=== PATIENT | female | born 1960 | race Two or more races ===

== ENCOUNTER 2021-08-05 17:13 | Emergency (ER) | payer MEDICARE, OTHER ==
[~2021-08-05] VITALS: Ht 157.5 cm; Wt 68.0 kg
--- NOTE | 2021-08-05 19:00 | NUR ---
Patient came back from CT scan accompanied by
--- NOTE | 2021-08-05 19:15 | NUR ---
Seen by THIERNO DE SOUZA for MSE.
--- NOTE | 2021-08-05 19:21 | NUR ---
Report given to Monique Mathews
[2021-08-05 19:29] LABS: HEMATOCRIT 26.1 % (31.2-41.9); MEAN CORPUSCULAR HEMOGLOBIN 30.4 uug (24.7-32.8); MEAN CORPUSCULAR VOLUME 90.5 fL (75.5-95.3); PLATELET COUNT (AUTO) 369 K/uL (179-408)
[2021-08-05 19:58] LABS: ALANINE AMINOTRANSFERASE 8 U/L (14-59); ALKALINE PHOSPHATASE 136 U/L (50-136); ASPARTATE AMINOTRANSFERASE 12 U/L (15-37); BILIRUBIN,DIRECT 0.1 mg/dL (0.0-0.2); BILIRUBIN,TOTAL 0.4 mg/dL (0.2-1.0); CARBON DIOXIDE 29 mmol/L (21-32); CHLORIDE 96 mmol/L (98-107); CREATININE 2.5 mg/dL (0.6-1.3); GLUCOSE 161 mg/dL (74-106); POTASSIUM 3.7 mmol/L (3.5-5.1); UREA NITROGEN, BLOOD 25 mg/dL (7-18)
--- NOTE | 2021-08-05 21:14 | NUR ---
Urine sent to lab.
[2021-08-05] MEDS ORDERED: OXYM15MI4 NS (21:15)
[2021-08-05] MEDS ORDERED: AMOX-430 PO (21:15)
[2021-08-05] MEDS ORDERED: FLUT16SP16 BNOSTRILS (21:15)
[2021-08-05 21:38] LABS: *BILIRUBIN,URIN NEGATIVE (NEGATIVE); *CLARITY,URINE CLEAR (CLEAR); *COLOR,URINE YELLOW (YELLOW); *KETONES,URINE NEGATIVE (NEGATIVE); *UROBILINOGEN,URINE 0.2 E.U./dl (NORMAL); LEUKOCYTE ESTERASE ,URINE TRACE (NEGATIVE); NITRITE, URINE NEGATIVE (NEGATIVE); PH,URINE 8.5 (5.0-8.0)
[2021-08-05 21:44] LABS: *BLOOD, URINE TRACE (NEGATIVE); UGLUCOSE 2+ (NEGATIVE)
--- NOTE | 2021-08-05 21:45 | NUR ---
Called [facility] and spoke with Autumn regarding patient's discharge.
--- NOTE | 2021-08-05 22:00 | NUR ---
Called [facility] and spoke with Pablito regarding patient's transportation to [facility] ETA [id number].
--- NOTE | 2021-08-05 22:35 | NUR ---
Patient discharged to [facility] via [facility] ambulance accompanied by 2 flue cleaner, in stable condition. VSS. NAD. Written and verbal after care instructions given. Patient verbalizes understanding of instructions. Stressed follow up or return to ER for worsening s/s.
[2021-08-05 23:12] VITALS: BP 160/87
[2021-08-06 03:58] LABS: BACTERIA,URINE FEW /HPF (NONE SEEN); RBC,URINE 0-3 /HPF (0-3); SQUAMOUS EPITHELIAL CELL,UR FEW /HPF (NONE SEEN); WBC,URINE 0-3 /HPF (0-3)
== END 2021-08-05 22:35 ==
LOC: ER 17:20
DX: H53.8 Other visual disturbances (principal); I13.2 Hypertensive heart and chronic kidney disease with heart failure and with stage 5 chronic kidney disease, or end stage renal disease; E11.22 Type 2 diabetes mellitus with diabetic chronic kidney disease; N18.6 End stage renal disease; I50.9 Heart failure, unspecified; Z86.16 Personal history of COVID-19; D63.1 Anemia in chronic kidney disease; E78.5 Hyperlipidemia, unspecified; K21.9 Gastro-esophageal reflux disease without esophagitis; Z99.2 Dependence on renal dialysis; H35.031 Hypertensive retinopathy, right eye; E11.319 Type 2 diabetes mellitus with unspecified diabetic retinopathy without macular edema; J32.3 Chronic sphenoidal sinusitis
CPT/HCPCS: 36415; 70450; 84484; 85025; 85651; 93005; A4663